=== PATIENT | male | born 1980 | race Caucasian/White ===

== ENCOUNTER 2017-11-19 16:58 | Observation (INO) ==
--- NOTE | 2017-11-19 20:24 | Emergency Department Note ---
Disposition Clinical Impression: Thrombosis superficial vein, arm, acute Qualifiers: Laterality: left Qualified Code(s): I82.612 - Acute embolism and thrombosis of superficial veins of left upper extremity Disposition: Admitted As Inpatient Condition: Good Time of Disposition: 23:00 Skin/Abscess/FB HPI Chief complaint: ED Skin/Abscess/Foreign Body Stated complaint: Abscess on L forearm Time Seen by Provider: 11/19/17 19:22 Source: patient Limitations: no limitations Nursing Notes Reviewed: Yes Vital Signs Reviewed: Yes HPI Narrative: Pt states "hard vein" showed up on Tuesday after IVDU with meth, small indurated , erythemic area to posterior LFA.. Pain with touch only. No fever/chills. Pt states no IVDU since previous Tuesday Pt Subjective Complaint: abscess/boil, discoloration Onset (ago): day(s) Tetanus Up to Date: unsure Location: LUE Severity: mild Quality: stabbing, aching, sharp Consistency: intermittent Improves with: rest Worsens with: palpation Context: IVDA Associated symptoms: Reports: denies other symptoms. Denies: fever, chills, nausea, vomiting, malaise Home Medications Medication Instructions Recorded Confirmed Lisinopril 03/02/17 Metformin 03/02/17 03/02/17 Previous Rx's Medication Instructions Recorded Ibuprofen 800 mg PO Q6-8H PRN #30 tablet 07/06/17 Sulfamethoxazole/Trimeth DS 1 each PO BID #20 tablet 07/06/17 [Bactrim DS] Diclofenac Potassium 50 mg PO TID PRN #20 tablet 07/08/17 predniSONE [PredniSONE] 20 mg PO BID #10 tablet 07/08/17 Allergies Allergy/AdvReac Type Severity Reaction Status Date / Time No Known Allergies Allergy Verified 11/19/17 17:21 All systems ED: reviewed and negative except as stated. Review of Systems: As Per HPI Constitutional: Reports: as per HPI. Denies: fever, chills, weakness Cardiovascular: Reports: as per HPI. Denies: chest pain, palpitations Respiratory: Reports: as per HPI. Denies: cough, dyspnea, wheezes Integumentary: Reports: lesions. 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 Absent: respiratory distress, accessory muscle use - Cardiovascular Cardiovascular exam: Present: regular rate, normal rhythm, normal heart sounds. Absent: systolic murmur - Expanded Upper Extremity Exam Arm exam: Present: full ROM, tenderness, other (proximal left antecubital with vein protrusion, hardened. Tender with touch. ) Elbow exam: Present: normal inspection, full ROM. Absent: tenderness, swelling , abrasion, ecchymosis, deformity Forearm/Wrist exam: Present: full ROM, tenderness, swelling, erythema, other ( posterior mid forearm with indurated erythemic area, no drainage, punctures, or openings, follows track of vein--left antecubital area). Absent: abrasion, laceration, ecchymosis, deformity, crepitus, dislocation Hand exam: Present: normal inspection, full ROM. Absent: tenderness, swelling, abrasion, ecchymosis, deformity, dislocation, erythema Neuromotor exam: Normal: wrist extension, thumb opposition, thumb IP flexion, thumb adduction Neurosensory exam: Normal: radial nerve, ulnar nerve, median nerve Vascular exam: Normal: capillary refill, radial pulse, ulnar pulse - Neurological Exam Neurological exam: Present: alert, oriented X3, CN II-XII intact, normal gait. Absent: motor sensory deficit - Psychiatric Psychiatric exam: Present: normal affect, normal mood - Skin Skin exam: Present: warm, dry, intact, other (see description above) Course Course Narrative: Non-ill appearing 37 y/o male presents to ED for "abscess" to posterior LFA and "hardened vein" to proximal LAC. History of IVDU, states has not used since previous Tuesday when areas were found, did not reuse areas after finding. Denies signs of systemic infection, fever/chills, N/V/D, SOB, CP. Previous "abscess" to left anterior forearm in process of healing from self-treatment. Labs reviewed without leukocytosis. Ultrasound revealed partial thrombus to LFA. Pt continues to be afebrile with stable vital signs. Case discussed with Dr. Franks with 1:1 facetime completed, agree with plan of care. Pt to be admitted to hospitalist services for IV ATB and monitoring. Laboratory Last Values WBC 6.0 K/mcL (4.3-11.1) 11/19/17 20: RBC 5.66 M/mcL (4.19-5.50) H 11/19/17 20:17 Hgb 17.3 g/dL (12.9-16.9) H 11/19/17 20: Hct 50.7 % (37.5-50.1) H 11/19/17 20: MCV 89.6 fL (83.0-100.0) 11/19/17 20: MCH 30.6 pg (28.0-33.3) 11/19/17: MCHC 34.1 g/dL (31.6-35.5) 11/19/17: RDW 12.8 % (11.5-14.5) 11/19/17 20: Plt Count 280 K/mcL (140-400) 11/19/17 20: MPV 9.6 fL (9.4-12.4) 11/19/17: Immature Gran % 0.2 % (0-4) 11/19/17: Seg Neutrophils % 48.3 % 11/19/17 20: Lymphocytes % 40.1 % 11/19/17: Monocytes % 7.9 % 11/19/17 20: Eosinophils % 2.8 % 11/19/17 20: Basophils % 0.7 % 11/19/17 20: Neutrophils # 2.9 K/mcL (1.6-8.9) 11/19/17 20: Lymphocytes # 2.4 K/mcL (0.6-4.6) 11/19/17 20: Monocytes # 0.5 K/mcL (0.0-1.3) 11/19/17 20: Eosinophils # 0.2 K/mcL (0.0-0.6) 11/19/17 20: Basophils # 0.0 K/mcL (0.0-0.2) 11/19/17 20:17 Sodium 139 mEq/L (136-145) 11/19/17 20:17 Potassium 3.7 mEq/L (3.5-5.1) 11/19/17 20:17 Chloride 104 mEq/L (98-107) 11/19/17 20:17 Carbon Dioxide 30 mEq/L (23-29) H 11/19/17 20:17 BUN 8 mg/dL (6-20) 11/19/17 20:17 Creatinine 0.71 mg/dL (0.70-1.30) 11/19/17 20:17 Est GFR ( Amer) > 60 (> 60) 11/19/17 20:17 Est GFR (Non-Af Amer) > 60 (> 60) 11/19/17 20:17 BUN/Creatinine Ratio 11 (6-26) 11/19/17 20:17 Glucose 154 mg/dL (70-105) H 11/19/17 20:17 Calculated Osmolality 289 (280-300) 11/19/17 20:17 Calcium 9.1 mg/dL (8.6-10.3) 11/19/17 20:17 Vital Signs - Last 8 Hours Temp Pulse Resp BP Pulse Ox 11/19/17 23:38 83 16 128/86 96 11/19/17 17:19 98.7 F 72 20 136/93 98 Intake and Output 11/19/17 11/19/17 11/19/17 07:59 15:59 23:59 Other: Weight 97.976 kg Patient Weight 11/19/17 23:59 Weight 97.976 kg - Reevaluation(s) Reevaluation #1: Spoke with Dr. Benjamin hospitalist accepted patient. Time: 23:02 Vital Signs Temperature 98.7 F 11/19/17 17:19 Pulse Rate 72 11/19/17 17:19 Respiratory Rate 20 11/19/17 17:19 Blood Pressure 136/93 11/19/17 17:19 O2 Sat by Pulse Oximetry 98 11/19/17 17:19 Temperature 97.6 F 11/20/17 00:51 Pulse Rate 80 11/20/17 00:51 Respiratory Rate 16 11/20/17 00:51 Blood Pressure 157/97 11/20/17 00:51 O2 Sat by Pulse Oximetry 98 11/20/17 00:51 Oxygen Delivery Oxygen Delivery Room Air Skin/Abscess/Foreign Body - Lab Data Result diagrams: 11/19/17 20:17 11/19/17 20:17 Lab Results 11/19/17 11/19/17 Range/Units 20:17 20:17 WBC 6.0 (4.3-11.1) K/mcL RBC 5.66 H (4.19-5.50) M/mcL Hgb 17.3 H (12.9-16.9) g/dL Hct 50.7 H (37.5-50.1) % MCV 89.6 (83.0-100.0) fL MCH 30.6 (28.0-33.3) pg MCHC 34.1 (31.6-35.5) g/dL RDW 12.8 (11.5-14.5) % Plt Count 280 (140-400) K/mcL MPV 9.6 (9.4-12.4) fL Immature Gran % 0.2 (0-4) % Seg Neutrophils % 48.3 % Lymphocytes % 40.1 % Monocytes % 7.9 % Eosinophils % 2.8 % Basophils % 0.7 % Neutrophils # 2.9 (1.6-8.9) K/mcL Lymphocytes # 2.4 (0.6-4.6) K/mcL Monocytes # 0.5 (0.0-1.3) K/mcL Eosinophils # 0.2 (0.0-0.6) K/mcL Basophils # 0.0 (0.0-0.2) K/mcL Sodium 139 (136-145) mEq/L Potassium 3.7 (3.5-5.1) mEq/L Chloride 104 (98-107) mEq/L Carbon Dioxide 30 H (23-29) mEq/L BUN 8 (6-20) mg/dL Creatinine 0.71 (0.70-1.30) mg/dL Est GFR ( Amer) > 60 (> 60) Est GFR (Non-Af Amer) > 60 (> 60) BUN/Creatinine Ratio 11 (6-26) Glucose 154 H (70-105) mg/dL Calculated Osmolality 289 (280-300) Calcium 9.1 (8.6-10.3) mg/dL Attestation Statement - Attestation Attestation: I, John Franks MD, personally evaluated this patient and discussed their management with the midlevel provicer, PAC/PIT FURNACE OPERATOR. I reviewed the midlevel provider 's note and agree with the documented findings, medical decision making, and plan of care. 37-year-old male presents to the emergency department with a complaint of an abscess of the left forearm which started several days prior to arrival. No fever. Increasing pain and swelling with pain radiating up into the elbow and the left upper arm. On examination patient is a well-developed well-nourished male in no acute distress. He is alert and oriented 3. There is no cyanosis or diaphoresis. There is tenderness and swelling over the proximal left forearm with some palpable induration along the course of the vein extending up onto the distal left upper arm. Neurovascular function intact distally. Labs reviewed. Venous Doppler negative for DVT but positive for superficial venous thrombosis in the left arm. The hospitalist, Dr. Benjamin, was consulted and accepted admission of the patient.
[2017-11-19 20:26] LABS: Basophils % 0.7 %; Eosinophils # 0.2 K/mcL (0.0-0.6); Eosinophils % 2.8 %; Hematocrit 50.7 % (37.5-50.1); Hemoglobin 17.3 g/dL (12.9-16.9); Immature Granulocytes % 0.2 % (0-4); Lymphocytes # 2.4 K/mcL (0.6-4.6); Lymphocytes % 40.1 %; Mean Corpuscular HGB Conc 34.1 g/dL (31.6-35.5); Mean Corpuscular Hemoglobin 30.6 pg (28.0-33.3); Mean Corpuscular Volume 89.6 fL (83.0-100.0); Mean Platelet Volume 9.6 fL (9.4-12.4); Monocytes # 0.5 K/mcL (0.0-1.3); Monocytes % 7.9 %; Neutrophils # 2.9 K/mcL (1.6-8.9); Platelet Count 280 K/mcL (140-400); Red Blood Count 5.66 M/mcL (4.19-5.50); Red Cell Distribution Width 12.8 % (11.5-14.5); Segmented Neutrophils % 48.3 %
[2017-11-19 20:48] LABS: BUN/Creatinine Ratio 11 (6-26); Blood Urea Nitrogen 8 mg/dL (6-20); Calcium 9.1 mg/dL (8.6-10.3); Carbon Dioxide 30 mEq/L (23-29); Chloride 104 mEq/L (98-107); Glucose 154 mg/dL (70-105); Osmolality,Calculated 289 (280-300); Potassium 3.7 mEq/L (3.5-5.1); Sodium 139 mEq/L (136-145); eGFR For African Americans > 60 (> 60); eGFR For Non-African Americans > 60 (> 60)
[2017-11-19] MEDS ORDERED: CefTRIAXone 1,000 MG VIAL IM ONE (21:57)
[2017-11-19] MEDS ORDERED: Vancomycin 1,000 MG in D5% in Water 250 ML IVPB ONE (21:58)
[2017-11-19] MEDS ORDERED: Water for inj. (sterile) 10 ML IV ONE (23:51)
[2017-11-20] MEDS ORDERED: 0.9 % Sodium Chloride 1,000 ML IVC SCH (01:00)
[2017-11-20] MEDS ORDERED: Piperacillin/Tazobactam 3.375 GM/200 ML BAG IVPB SCH ×3 (02:00→18:00)
[2017-11-20] MEDS: *HR* HYDROcodone/Acet 5/325 mg TABLET PO PRN ×4 (02:33→23:31)
[2017-11-20] MEDS ORDERED: Naloxone 0.4 MG/ML INJ IVP PRN (05:57)
[2017-11-20] MEDS ORDERED: Ondansetron 4 MG/2 ML VIAL IVP PRN (05:57)
[2017-11-20] MEDS ORDERED: Acetaminophen 325 MG TABLET PO PRN (05:57)
[2017-11-20] MEDS ORDERED: Vancomycin 1,500 MG in D5% in Water 250 ML IVPB SCH (06:00)
--- NOTE | 2017-11-20 06:14 | Internal Med History&Physical ---
Date of Encounter: 11/20/17 Time of Encounter: 06:04 Assessment and Plan (1) Thrombosis superficial vein, arm, acute Current visit: Yes Status: Acute 1. Will place on aspirin, IV antibiotics, warm compresses, and monitor for signs of abscess formation. 2. No sign of abscess presently. 3. Consult Orthopedics if complications arise. Qualifiers: Laterality: left Qualified Code(s): I82.612 - Acute embolism and thrombosis of superficial veins of left upper extremity (2) Drug abuse Current visit: No Status: Acute 1. Patient with active drug use. 2. Consult social worker masters fro assistance if patient shows interest in quitting. (3) DVT prophylaxis Current visit: Yes Status: Acute 1. Heparin SQ. Internal Medicine - H&P: HPI Chief complaint: left arm pain Admitted From: Emergency Dept Plans for Post Hospital Care: Home History of present illness: Mr. Fiore is a 37 year old male who presented to the ER with complaints of pain and swelling in his left forearm. He had Doppler of his left arm performed in ER, which showed superficial thrombus and no DVT. HE also had some surrounding cellulitis. He was then admitted to the hospitalist service. Upon my assessment of patient, he is resting in bed comfortably. He complains of pain and warmth to his left forearm. He uses IV drugs and injects close to that area. He denies fevers or chills. He has no cough, SOB, or CP. He denies history of endocarditis. Past Med Surg Social Fam HX - Past Medical History Attestation: Yes The following information was validated with the patient. Source: patient, old records reviewed Medical history: non-contributory, other (IVDU) Psychiatric history: anxiety, depression, prior suicide attempt - Past Surgical History Surgical History: other (lung biopsy) - Social History Smoking Status: Current every day smoker Smokeless Tobacco Status: No Alcohol use: none Drug use: methamphetamine, IV Drug Use Current living situation: Home Activity Level: Independent ambulation - Family History Mother Adopted: [place]: Meenakshi Fiore Age: 60 Family Member Ethnicity: Non- Living Status: Still Living Hx Family Respiratory Disorders: Yes (COPD) Hx Family Cancer: No Hx Family GI Disorders: No Hx Family Genitourinary Disorders: No Hx Family Endocrine Disorder: No Hx Family Musculoskeletal Disorders: No Hx Family Neuromuscular Disorders: No Hx Family Neurologic Disorders: No Hx Family HEENT Disorders: No Hx Family Autoimmune Disorders: No Hx Family Reproductive Disorders: No Hx Family Psychosocial Disorders: No Hx Family Medical Disorders: No Internal Medicine - H&P: Meds Lisinopril 03/02/17 [History] Metformin 03/02/17 [History] Ibuprofen 800 mg PO Q6-8H PRN #30 tablet 07/06/17 [Rx] Sulfamethoxazole/Trimeth DS [Bactrim DS] 1 each PO BID #20 tablet 07/06/17 [Rx] Diclofenac Potassium 50 mg PO TID PRN #20 tablet 07/08/17 [Rx] predniSONE [PredniSONE] 20 mg PO BID #10 tablet 07/08/17 [Rx] 3 Allergy/AdvReac Type Severity Reaction Status Date / Time No Known Allergies Allergy Verified 11/19/17 17:21 - Constitutional Constitutional: no chills, no fever(s), no night sweats - EENT Eyes: no blurry vision, no change in vision Ears: no ear pain, no tinnitus Nose, mouth and throat: no nasal congestion, no sinus pain, no sinus pressure - Cardiovascular Cardiovascular ROS IM: no chest pain, no diaphoresis, no dyspnea, no dyspnea on exertion - Respiratory Respiratory: no cough, no dyspnea, no hemoptysis - Gastrointestinal Gastrointestinal: no abdominal pain, no diarrhea, no hematemesis, no hematochezia, no melena, no nausea, no vomiting - Genitourinary Genitourinary ROS male: no dysuria, no flank pain, no hematuria - Musculoskeletal Musculoskeletal ROS IM: deformity (left forearm), no arthralgias, no myalgias - Integumentary Integumentary IM: no rash, no jaundice - Neurological Neurological ROS: no disequilibrium, no dizziness, no focal weakness, no frequent falls - Psychiatric Psychiatric: no anxiety, no depression - Endocrine Endocrine IM: no polydipsia, no polyuria - Hematologic/Lymphatic Hematologic/Lymphatic: no easy bruising, no lymphadenopathy - Allergic/Immunologic Allergic/Immunologic: no wheezing, no GI upset with certain foods - Constitutional Vitals: Temp Pulse Resp BP Pulse Ox 98.0 F 72 16 123/77 96 11/20/17 03:45 11/20/17 03:45 11/20/17 03:45 11/20/17 03:45 11/20/17 03:45 General appearance: Present: cooperative, A&O X 3, no acute distress - Head Head exam: Present: atraumatic, normal inspection - Eye Eye exam: Present: EOMI, PERRL. Absent: scleral icterus Pupils: Present: normal accommodation - ENT ENT exam: Present: mucous membranes dry, normal exam - Neck Neck exam general surgery: Present: full ROM, supple. Absent: lymphadenopathy, tenderness - Respiratory Respiratory exam: Present: CTAB. Absent: accessory muscle use, chest wall tenderness, rales, rhonchi, wheezes - Cardiovascular Cardiovascular exam: Present: RRR, +S1, +S2. Absent: diastolic murmur, systolic murmur - GI/Abdominal GI/Abdominal exam: Present: normal bowel sounds, soft. Absent: hepatomegaly, splenomegaly, tenderness - Extremities Exam Extremities exam: Present: normal capillary refill, tenderness (left forearm with painful nodule/thrombus and mild surrounding cellulits), warm, radial pulses palpable and symmetrical. Absent: calf tenderness - Back Exam Back exam: Absent: CVA tenderness (L), CVA tenderness (R) - Neurological Exam Neurological exam: Present: alert, CN II-XII intact, oriented X3, no focal deficits - Psychiatric Psychiatric exam: Present: normal affect, normal mood - Skin Skin exam: Present: dry, warm Additional comments: multiple tattoos throughout body Internal Med - H&P Results - Labs CBC & Chem 7: 11/19/17 20:17 11/19/17 20:17
[2017-11-20] MEDS: 0.9 % Sodium Chloride w KCl 20 MEQ/1,000 ML MLS IVC SCH ×2 (09:26→17:48)
[2017-11-20] MEDS: Aspirin 325 MG TABLET PO SCH (09:28)
[2017-11-20] MEDS: *HR* Heparin 5,000 UNIT/ML VIAL SQ SCH ×2 (09:28→17:48)
--- NOTE | 2017-11-20 09:42 | Event Note ---
Date of Encounter: 11/20/17 Time of Encounter: 08:00 Seen and examined at bedside; resting comfortably with both eyes closed. Complains of left arm discomfort but states tolerable. Left arm examined and small raised area noted with trace, nonpitting edema. No drainage. (1) Thrombosis superficial vein, arm, acute: Left arm swelling slight erythema and pain. Left upper extremity Doppler in the ED showed partial SVT in the left cephalic vein, no evidence of DVT. Cont IV vanco, zosyn, aspirin, warm compresses, and monitor for signs of abscess formation. No sign of abscess presently. Consult Orthopedics if complications arise. (2) Drug abuse: patient with active drug use.Consult administrator social welfare for assistance if patient shows interest in quitting. (3) DVT prophylaxis: Heparin SQ.
[2017-11-20] MEDS: Vancomycin 1,250 MG in D5% in Water 250 ML IVPB SCH (11:34)
[2017-11-21] MEDS ORDERED: Piperacillin/Tazobactam 3.375 GM/200 ML BAG IVPB SCH
[2017-11-21] MEDS: Vancomycin 1,250 MG in D5% in Water 250 ML IVPB SCH (00:15)
[2017-11-21 05:35] LABS: Basophils % 0.6 %; Eosinophils # 0.2 K/mcL (0.0-0.6); Eosinophils % 3.2 %; Hematocrit 47.1 % (37.5-50.1); Immature Granulocytes % 0.2 % (0-4); Lymphocytes # 2.6 K/mcL (0.6-4.6); Lymphocytes % 42.3 %; Mean Corpuscular Hemoglobin 30.2 pg (28.0-33.3); Mean Platelet Volume 9.9 fL (9.4-12.4); Monocytes # 0.6 K/mcL (0.0-1.3); Monocytes % 9.3 %; Neutrophils # 2.8 K/mcL (1.6-8.9); Platelet Count 269 K/mcL (140-400); Red Blood Count 5.29 M/mcL (4.19-5.50); Red Cell Distribution Width 12.7 % (11.5-14.5); Segmented Neutrophils % 44.4 %
[2017-11-21 05:41] LABS: Alanine Aminotransferase 34 Units/L (7-52); Albumin 3.5 g/dL (3.5-5.7); Albumin/Globulin Ratio 1.3 (1.1-2.2); Alkaline Phosphatase 71 Units/L (34-104); Aspartate Amino Transferase 29 Units/L (13-39); BUN/Creatinine Ratio 11 (6-26); Bilirubin,Total 0.6 mg/dL (0.3-1.0); Blood Urea Nitrogen 8 mg/dL (6-20); Calcium 8.6 mg/dL (8.6-10.3); Carbon Dioxide 27 mEq/L (23-29); Chloride 107 mEq/L (98-107); Globulin 2.8 g/dL (2.4-3.5); Glucose 165 mg/dL (70-105); Osmolality,Calculated 290 (280-300); Potassium 3.8 mEq/L (3.5-5.1); Sodium 139 mEq/L (136-145); Total Protein 6.3 g/dL (6.4-8.9); eGFR For African Americans > 60 (> 60); eGFR For Non-African Americans > 60 (> 60)
[2017-11-21] MEDS: *HR* Heparin 5,000 UNIT/ML VIAL SQ SCH (06:06)
[2017-11-21] MEDS: *HR* HYDROcodone/Acet 5/325 mg TABLET PO PRN (06:06)
[2017-11-21 07:23] VITALS: BP 135/85
--- NOTE | 2017-11-21 08:06 | Discharge Summary ---
Date of Encounter: 11/21/17 Time of Encounter: 08:02 - Discharge Diagnosis (1) Thrombosis superficial vein, arm, acute Priority: Primary Status: Acute Comments: presented with pain and swelling to left forearm. LUE venous doppler showed acute superficial venous thrombosis to left cephalic cephalic vein, no evidence of DVT. Suspecte secondary to IV drug use (patient admitted injecting IV drugs close to affected area). No eveidence of abscess formation, no drainage to culture. Sx's improved with IV vanco and Zosyn. Discharge home on Keflex, baby ASA and encouraged warm compress. Qualifiers: Laterality: left Qualified Code(s): I82.612 - Acute embolism and thrombosis of superficial veins of left upper extremity (2) Drug abuse Priority: Primary Status: Acute Comments: per hx. Likely contributing to superficial venous thrombosis. Cessation advised - Discharge Medications Prescriptions: Aspirin 81 mg PO DAILY #30 tab.chew Cephalexin [Keflex] 500 mg PO QID #20 capsule Home Medications: Aspirin 81 mg PO DAILY #30 tab.chew 11/21/17 [Rx] Cephalexin [Keflex] 500 mg PO QID #20 capsule 11/21/17 [Rx] Allergies/Adverse Reactions: 3 Allergy/AdvReac Type Severity Reaction Status Date / Time No Known Allergies Allergy Verified 11/19/17 17:21 Date of admission: 11/19/17 23:18 Primary care physician: PCP NONE Consults: 11/20/17 00:45 Consult to Nutrition [CONS] Routine Comment: Consulting Provider: NUTRITION Reason for Dietary Consult: MST Score Consult to [employer] Consultant [CONS] Routine Reason for SW Consult: possible need for ECF if dc on IV antibiotics Discharging clinician: Jes Pinto Anticipated date of discharge: 11/21/17 - Patient Status Disposition: Home, Self-Care Condition: Good Overall status at discharge: patient is back to baseline - Discharge Instructions Instructions: Cephalexin (By mouth), Aspirin (By mouth) Follow Up With: NONE,PCP [Primary Care Provider] - Additional Instructions: Please use the information provided to find a primary care physician. You should be seen within 1-2 weeks What is superficial vein phlebitis/thrombosis? "Superficial vein phlebitis" and "superficial vein thrombosis" are medical terms for problems with the veins that are close to the surface of the skin (called the superficial veins): -Superficial vein phlebitis is when the veins get inflamed. -Superficial vein thrombosis is when blood clots form in the veins. If both problems happen, it is called "superficial vein thrombophlebitis." Superficial vein phlebitis/thrombosis is related to another vein problem called "deep vein thrombosis" or "DVT." DVT is when a vein located deep between the muscles gets inflamed or becomes clotted. DVT can be very dangerous because clots within a deep vein can break off and travel to the lungs, causing something called a "pulmonary embolism." Again, superficial vein phlebitis/thrombosis affects veins near the surface of the skin. DVT affects veins deep in the muscle. Is superficial vein phlebitis/thrombosis dangerous? Superficial vein phlebitis is not usually dangerous. But with superficial vein thrombosis, clots in a superficial vein can extend into a deep vein causing DVT, or break off, causing pulmonary embolism. For these reasons, superficial vein thrombosis is taken very seriously, especially when it affects the thigh or upper arm, where superficial and deep veins meet. How does superficial vein phlebitis/thrombosis relate to other vein problems? People who get superficial vein phlebitis/thrombosis often also have a type of vein disease called "venous insufficiency." Venous insufficiency can occur with or without varicose veins (twisted, swollen veins), and most often affects the legs. When the veins are healthy and working normally, they carry blood in only 1 direction, from the arms and legs back to the heart. Veins have valves inside them to keep blood moving toward the heart. The valves open to let blood flow to the heart, and close to keep blood from flowing backwards. When the valves are damaged or do not work well, blood flows backward and collects in the veins. This is called venous insufficiency. People without venous insufficiency can also get superficial vein phlebitis/ thrombosis. This usually happens after having an intravenous catheter, which is a tube that goes into a vein to give medicines. But even people who had nothing put into a vein can get superficial vein phlebitis/thrombosis. For instance, it can happen to people with blood clotting problems or cancer. What are the symptoms of superficial vein phlebitis/thrombosis? The symptoms include: -Pain, tenderness, or redness along the length of a vein -Hardening of the vein -Fever -Fluid draining from the area where a catheter was put in -Swelling of the affected arm or leg Should I see a doctor or nurse? Yes, if you have symptoms of superficial vein phlebitis/thrombosis, see your doctor or nurse. See him or her right away if the affected arm or leg is swollen, or if the affected vein is in the thigh or upper arm. Call for an ambulance (in the [place] and [place], dial [id number]) if you get symptoms of a blood clot in the lungs, such as: -Panting or trouble breathing -Sharp, knife-like chest pain when you breathe in -Coughing or coughing up blood -A rapid heartbeat Will I need tests? Maybe. Your doctor or nurse might be able to tell what is happening by doing an exam and learning about your symptoms. He or she might also do a test called an ultrasound. An ultrasound will show if any of the veins are blocked, especially the deep veins. It can also check how well the valves in the veins work. In some cases, your doctor might order blood tests. How is superficial vein phlebitis/thrombosis treated? The treatment for superficial vein phlebitis/thrombosis focuses on easing the symptoms. To do this , doctors recommend that you: -Use heating or cooling pads on the affected area -Raise the arm or leg, propping it up on pillows or a chair when resting -Take a medicine called an NSAID Examples include ibuprofen (sample brand names: Advil, Motrin) and naproxen (sample brand names: Aleve, Naprosyn) If your superficial vein phlebitis/thrombosis is near where you have (or had) an intravenous catheter, your doctor will check for infection. If you do have an infection, you might need antibiotics. If superficial vein phlebitis/thrombosis is in your leg, your doctor or nurse might also suggest you wear compression stockings. These are special socks that fit tightly over the ankle and leg. If your doctor or nurse recommends them, he or she will tell you which type to wear and how to put them on. Some people do not need treatment beyond that described above. In some cases where superficial vein thrombosis is near the deep veins, though, your doctors will prescribe a medicine to prevent more clots from forming. Can superficial vein phlebitis/thrombosis be prevented? You can reduce your chances of getting superficial vein phlebitis/thrombosis in the leg veins by staying active and not sitting too long without moving. - Diet and Activity Activity: increase activity as tolerated Diet: advance to your usual diet Interval History: Seen and examined at bedside, patient says he feels better and wants to go home. Pain and swelling to left arm significantly improved. No drainage. He was given FIND number in order to establish care with PCP Hospital course: See assessment and plan for hospital course - Time Spent with Patient Total time spent providing and/or coordinating discharge services: - Constitutional Vitals: Temp Pulse Resp BP Pulse Ox 97.7 F 66 15 135/85 98 11/21/17 07:18 11/21/17 07:18 11/21/17 07:18 11/21/17 07:18 11/21/17 07:18 General appearance: Present: cooperative, A&O X 3, no acute distress - Head Head exam: Present: atraumatic, normocephalic - Eye Eye exam: Present: PERRL, conjuntiva pink, sclera anicteric Pupils: Present: PERRL - Neck Neck exam general surgery: Present: supple, trachea midline. Absent: lymphadenopathy - Respiratory Respiratory exam: Present: CTAB. Absent: accessory muscle use, rales, rhonchi, wheezes - Cardiovascular Cardiovascular exam: Present: RRR, +S1, +S2. Absent: diastolic murmur, gallop, rubs, systolic murmur - GI/Abdominal GI/Abdominal exam: Present: normal bowel sounds, soft, no peritoneal signs. Absent: distended, tenderness - Extremities Exam Extremities exam: Present: warm, radial pulses palpable and symmetrical. Absent : calf tenderness, cyanotic, pedal edema Additional comments: trace, non-pitting edema with smal raised area to left arm. No redness, tenderness or drainage. - Neurological Exam Neurological exam: Present: CN II-XII intact, oriented X3, no focal deficits. Absent: pronater drift, facial droop, speech deficit - Skin Skin exam: Present: dry, intact
[2017-11-21] MEDS: Aspirin 325 MG TABLET PO SCH (08:09)
[2017-11-21] MEDS ORDERED: Aminoglycoside Consult 1 EACH MC ONE (08:39)
== END 2017-11-21 08:40 | disposition home or self-care (01) ==
LOC: EMEROO 16:58 → 3NENU 16:58
PROVIDERS: ADMIT Internal Medicine; ATTEND Hospitalist